=== PATIENT | female | born 1985 | race Caucasian/White ===

== ENCOUNTER 2019-01-23 12:12 | Emergency (ER) | payer OTHER, MEDICAID, SELFPAY ==
[2019-01-23 12:20] VITALS: BP 128/72; PULSE 84; RESP 18; TEMP 36.7; O2SAT 97; BMI 29.2
--- NOTE | 2019-01-23 12:46 | PC.NURSE ---
reports, picked up her son (30 pounds) yesterday, developed lumbar pain with left leg radiating pain (anterior and posterior pain all the way down to the lower leg) also with right anterior pain right leg. hurts to ambulate or moved. evaluated and rx given to pt from [facility]. spouse at .
--- NOTE | 2019-01-23 13:10 | ED_ITS ---
HPI - Back Pain/Injury <Avelina Monson PA-C - Last Filed: 01/23/19 19:21> General Chief Complaint: Back Pain/Injury Stated Complaint: hurt back yesterday while lifting child, numbness Time Seen by Provider: 01/23/19 12:35 Source: patient Mode of arrival: ambulatory Limitations: no limitations History of Present Illness HPI Narrative: This healthy 33-year-old lifted her 30 lb son yesterday and felt a pop in her low back. She felt pain across her low back, and since then has had shooting pain down her left leg to the ankle and to a lesser degree on the right leg. She states that she is able to walk but it is painful. She sometimes feels like her legs could give out a little bit but not dragging, no buckling or falls. She is not having any difficulty urinating, no bowel changes other than difficulty sitting on the toilet, no groin numbness. She was seen at another local emergency room yesterday and given Flexeril, prednisone, and [place] and has been in that with a little bit of improvement, able to sleep last night, but still very painful. She has an active job in a long commute and does not feel like she can sit in the car for a long period, concerned about whether oth er workup needed. She states that she had some herniated discs at L4/5/S1 at age 20 that did improved, still gets occasional pain but nothing like this. She denies any other ongoing medical problems or possibility of . Related Data Previous Rx's Medication Instructions Recorded gabapentin [Neurontin] 300 mg PO Q8H #30 cap 01/23/19 lidocaine [Lidoderm] 2 patch TOP DAILY #30 each 01/23/19 Allergies Allergy/AdvReac Type Severity Reaction Status Date / Time No Known Drug Allergies Allergy Verified 01/23/19 12:40 Review of Systems <Avelina Monson PA-C - Last Filed: 01/23/19 19:21> Review of Systems ROS Unobtainable: All systems reviewed & are unremarkable except as noted in HPI and below PFSH <Avelina Monson PA-C - Last Filed: 01/23/19 19:21> Medical History (Updated 01/23/19 @ 13:28 by Avelina Monson PA-C) Lumbar herniated disc (Chronic) Surgical History (Updated 01/23/19 @ 13:28 by Avelina Monson PA-C) Labral tear of shoulder (Resolved) Social History Smoking Status: Former smoker Social History Smoking Status: Former smoker Exam <Avelina Monson PA-C - Last Filed: 01/23/19 19:21> Narrative Exam Narrative: GENERAL APPEARANCE: Patient standing, appears stiff, uncomfortable, in NAD PULMONARY: Lungs clear to auscultation bilaterally CV: Regular rhythm regular without murmur, normal S1 and S2, no S3 or S4 MUSCULOSKELETAL: Mild tenderness throughout the lumbosacral spine and musculature as well as the SI joints. reduced trunk flexion to about 30? with tenderness. reduced rotation and lateral bend in all moya secondary to tenderness. she ambulates with a stiff, slightly shortened gait but bearing full weight, no foot drop. Lower extremity strength 5/5 bilateral hip flexors, knee extensors, foot plantar flexion. Negative modified straight leg raise NEUROLOGIC: Bilateral patellar and Achilles DTRs 2+ DERMATOLOGIC: No exanthem Initial Vital Signs Initial Vital Signs: Vital Signs Temperature 98.0 F 01/23/19 12:20 Pulse Rate 84 01/23/19 12:20 Respiratory Rate 18 01/23/19 12:20 Blood Pressure 128/72 01/23/19 12:20 Pulse Oximetry 97 01/23/19 12:20 <DO Jose Manuel Brizuela Last Filed: 01/24/19 07:03> Initial Vital Signs Initial Vital Signs: Vital Signs Temperature 98.0 F 01/23/19 12:20 Pulse Rate 84 01/23/19 12:20 Respiratory Rate 18 01/23/19 12:20 Blood Pressure 128/72 01/23/19 12:20 Pulse Oximetry 97 01/23/19 12:20 Course <Avelina Monson PA-C - Last Filed: 01/23/19 19:21> Vital Signs - 8 hr 01/23/19 12:20 Temperature 98.0 F Pulse Rate 84 Respiratory Rate 18 Blood Pressure 128/72 Pulse Oximetry 97 <DO Jose Manuel Brizuela Last Filed: 01/24/19 07:03> Vital Signs - 8 hr 01/23/19 12:20 Temperature 98.0 F Pulse Rate 84 Respiratory Rate 18 Blood Pressure 128/72 Pulse Oximetry 97 Discharge Plan Departure Patient Disposition: Home Clinical Impression: Sciatica Qualifiers: Laterality: bilateral Qualified Code(s): M54.31 - Sciatica, right side Discharge Date/Time: 01/23/19 13:36 Interventions: ED Discharge Assessment Last Done: 01/23/19 13:36 Instructions: DI for Back Pain With Sciatica Activity Restrictions/Additional Instructions: Please rest your back as we talked about, lying down or standing and gentle walking should be more comfortable for you than sitting for long periods, and also avoid bending, lifting, and twisting. Continue your prednisone. Takes the hydrocodone/acetaminophen and cyclobenzaprine as needed, but do not drive with these as they can make you sleepy. I have also sent in a prescription for gabapentin, which is a nerve pain medicine to your pharmacy for you to try. Remember that can make you sleepy as well. I have also sent in a prescription for lidocaine patches to put on the sore areas of your back. Typically this type of pain gets better with supportive care including medicine and therapy such as PT and massage. As we discussed, you should get to the ED right away if you have new symptoms such as numbness in your groin, inability to urinate, or weakness in your extremities. I have scheduled you for a new patient appointment with Dr. Hidalgo here in [facility] at the [facility] on , 01/25, check in at 11:00. Please complete and drop off your new patient paperwork on your way out. They can help you get referrals started for PT etc. Please remain off of work for now and you can assess your progress on Prescriptions: New lidocaine [Lidoderm] 5 % adhesive patch,medicated 2 patch TOP DAILY Qty: 30 RF: 0 gabapentin [Neurontin] 300 mg capsule 300 mg PO Q8H Qty: 30 RF: 0 Referrals: Jose Hidalgo MD [Physician] - Stand Alone Forms: Work Release Note <Kendall Salas DO - Last Filed: 01/24/19 07:03> Cosign ED Attending Cosfarzanaature Attestation: I was available for consultation during this patient's emergency department encounter
== END 2019-01-23 13:36 | disposition home or self-care (01) ==
PROVIDERS: Emergency Provider Internal Medicine
DX: M54.31 Sciatica, right side (principal); R20.0 Anesthesia of skin
CPT/HCPCS: 99282; 99283

== ENCOUNTER 2021-05-28 15:09 | Emergency (ER) | payer OTHER, SELFPAY ==
[2021-05-28 15:56] VITALS: BP 129/87; PULSE 88; RESP 16; TEMP 36.7; O2SAT 98; BMI 28.3
[2021-05-28 16:52] LABS: COVID19 -Nasal RAPID POSITIVE (Negative)
--- NOTE | 2021-05-28 17:07 | ED_ITS ---
HPI - URI/Sore Throat <Mario Peoples PA-C - Last Filed: 05/28/21 17:13> General Chief Complaint: Upper Respiratory Symptoms Stated Complaint: SOB,Headache,Cough,Tired Time Seen by Provider: 05/28/21 16:53 History of Present Illness HPI Narrative: Virgen presents today with chief complaint of runny nose, sore throat, mild cough and chest tightness that started about 1 week ago. She initially thought it was due to the sawdust at work and the heat. Her symptoms have improved but she would like to get tested for COVID. She reports that her partner has similar symptoms that started 2 days ago. Virgen is unvaccinated at this time but is scheduled to get her vaccine this next Tuesday. She denies any significant chest pain, difficulty breathing, fever but does endorse body aches and fatigue. She is tolerating oral intake normally. No significant past med ical problems. She does not take any prescription medications regularly. Related Data Previous Rx's Medication Instructions Recorded gabapentin 300 mg capsule 300 mg PO Q8H #30 cap 01/23/19 (Neurontin) lidocaine 5 % topical patch 2 patch TOP DAILY #30 each 01/23/19 (Lidoderm) Allergies Allergy/AdvReac Type Severity Reaction Status Date / Time No Known Drug Allergies Allergy Verified 01/23/19 12:40 Review of Systems <Mario Peoples PA-C - Last Filed: 05/28/21 17:13> Review of Systems Narrative: As per HPI Patient History <Mario Peoples PA-C - Last Filed: 05/28/21 17:13> Medical History (Updated 05/28/21 @ 17:11 by Mario Peoples PA-C) Lumbar herniated disc Surgical History (Updated 01/23/19 @ 13:28 by Avelina Monson PA-C) Labral tear of shoulder Social History Smoking Status: Former smoker Smoking Status: Former smoker alcohol intake frequency: 0-2 drinks per day Substance Use Type: does not use Exam <Mario Peoples PA-C - Last Filed: 05/28/21 17:13> Narrative Exam Narrative: Exam Narrative: Const General: cooperative, healthy appearing, comfortable, no acute distress, well developed and well groomed Nutritional Appearance: average body habitus Orientation: alert and oriented x3 HENMT Head: normal to inspection and atraumatic Ears: hearing grossly normal bilaterally Nose: external nose normal and nares normal Face and sinus: normal facial exam Neck Neck: normal visual inspection and supple Resp Effort & Inspection: normal respiratory effort, able to speak in complete sentences, no audible wheezes, not labored, no nasal flaring and no respiratory distress Neuro General: alert, oriented x3, gait normal, tone normal and moves all extremities Cognition: normal cognition Speech: speech normal Gait: normal gait Psych Appearance: grossly normal and well kempt Mental Status: mental status grossly normal Speech and Movement: speech and movement normal Mood: congruent mood Affect: normal affect Initial Vital Signs Initial Vital Signs: Vital Signs Temperature 98.0 F 05/28/21 15:56 Pulse Rate 88 05/28/21 15:56 Respiratory Rate 16 05/28/21 15:56 Blood Pressure 129/87 05/28/21 15:56 Pulse Oximetry 98 05/28/21 15:56 <DO Jose Manuel Brizuela Last Filed: 05/28/21 17:41> Initial Vital Signs Initial Vital Signs: Vital Signs Temperature 98.0 F 05/28/21 15:56 Pulse Rate 88 05/28/21 15:56 Respiratory Rate 16 05/28/21 15:56 Blood Pressure 129/87 05/28/21 15:56 Pulse Oximetry 98 05/28/21 15:56 Course <Mario Peoples PA-C - Last Filed: 05/28/21 17:13> Orders Ordered: ED Orders 05/28/21 16:00 COVID19 -Nasal swab/Pre-Proc Stat Vital Signs Vital signs: Vital Signs - 8 hr 05/28/21 15:56 Temperature 98.0 F Pulse Rate 88 Respiratory Rate 16 Blood Pressure 129/87 Pulse Oximetry 98 <DO Jose Manuel Brizuela Last Filed: 05/28/21 17:41> Orders Ordered: ED Orders 05/28/21 16:00 COVID19 -Nasal swab/Pre-Proc Stat Vital Signs Vital signs: Vital Signs - 8 hr 05/28/21 15:56 Temperature 98.0 F Pulse Rate 88 Respiratory Rate 16 Blood Pressure 129/87 Pulse Oximetry 98 MDM - URI/Sore Throat <REJI Perez Last Filed: 05/28/21 17:13> Lab Data Labs: Lab Results 05/28/21 Range/Units 16:00 SARS-CoV-2 (PCR) Positive H (Negative) MDM Narrative Medical decision making narrative: Patient is otherwise healthy, is oxygenating well and has reassuring vital signs. Her symptoms are improving at this time. I suspect that home isolation and a symptomatic therapy will be appropriate. Return precautions were discussed with the patient. Patient verbalizes understanding and agrees to plan and has no further concerns at this time. Thank you A [id number] system was used with the dictation of this note. Please disregard any spelling or grammatical errors. <Kendall Salas DO - Last Filed: 05/28/21 17:41> Lab Data Labs: Lab Results 05/28/21 Range/Units 16:00 SARS-CoV-2 (PCR) Positive H (Negative) Discharge Plan Departure Patient Disposition: Home Clinical Impression: COVID-19 Instructions: DI for COVID-19 (Suspected or Confirmed ) Activity Restrictions/Additional Instructions: It was very nice to meet you this afternoon. Please follow the CDC's guidelines for home isolation. Please assume that your and children all have the virus and quarantine at home per recommendations. Recommend monitoring oxygen saturation. If you experience consistent saturation levels below 92% and please return for prompt re-evaluation. Mother return precautions include chest pain, or any other new or worsening complaints. Thank you Mario Peoples PAC Prescriptions: No Action lidocaine [Lidoderm] 5 % adhesive patch,medicated 2 patch TOP DAILY Qty: 30 RF: 0 gabapentin [Neurontin] 300 mg capsule 300 mg PO Q8H Qty: 30 RF: 0 Referrals: Miscellaneous,DoctorMD [Primary Care Provider] - <Kendall Salas DO - Last Filed: 05/28/21 17:41> Cosign ED Attending Cosignature Attestation: Dr Salas Co-Sign Statement: I was available for consultation during this patient's emergency department visit. This chart is signed by myself for administrative purposes only. I did not have direct contact with this patient during this visit. They were seen independently by the APC.
== END 2021-05-28 17:17 | disposition home or self-care (01) ==
PROVIDERS: Emergency Medicine; Emergency Provider Physician Assistant
DX: U07.1 COVID-19 (principal); R05 Cough
CPT/HCPCS: 87635; 99281; 99282; C9803

== ENCOUNTER 2023-05-21 18:33 | Emergency (ER) | payer OTHER, SELFPAY ==
[2023-05-21 18:35] VITALS: BP 133/90; PULSE 55; RESP 14; O2SAT 100; BMI 29.7
--- NOTE | 2023-05-21 18:50 | ED.LOWEXIN ---
HPI - Extremity Injury (Lower) General Chief Complaint: Extremity Injury, Lower Stated Complaint: strained/pulled calf Time Seen by Provider: 05/21/23 18:37 Source: patient Mode of arrival: Ambulatory History of Present Illness HPI Narrative: 37-year-old female former smoker presents with a chief complaint of an injury to her right calf yesterday while playing baseball. She states that she had been in her normal state of health until she swung at a pitch and felt a tearing sensation in her posterior calf. She states that initially there was significant swelling and it felt like it had balled up some. It admittedly has improved since the time of her injury. She is able to walk and has no trouble with stepping off, she denies any pain radiating into her ankle or heel. Her pain is worse with motion and improves with rest. Related Data Previous Rx's Medication Instructions Recorded gabapentin 300 mg capsule 300 mg PO Q8H sciatica #30 caps 01/23/19 (Neurontin) lidocaine 5 % topical patch 2 patch topical DAILY #30 ea 01/23/19 (Lidoderm) Allergies Allergy/AdvReac Type Severity Reaction Status Date / Time No Known Drug Allergies Allergy Verified 05/21/23 18:37 Review of Systems Review of Systems Narrative: GENERAL: Denies chills, fatigue, malaise, fever, sweats. HEENT: Denies sinus pain, ear pain, sore throat, difficulty swallowing, dizziness. RESPIRATORY: Denies dyspnea, cough, wheezing, hemoptysis, sputum. CARDIOVASCULAR: Denies chest pain, palpitations, orthopnea, edema, GASTROINTESTINAL: Denies nausea, vomiting, abdominal pain, diarrhea, constipation, melena. : Denies dysuria, frequency, incontinence, hematuria, urinary retention. MUSCULOSKELETAL: See HPI SKIN: Denies rash, skin lesions, or other NEUROLOGIC: Denies weakness, headache, numbness, change in speech, confusion, seizures, incoordination. PSYCHIATRIC: No concerning psychosocial issues. 12 point review of systems is negative except for those stated above Patient History Medical History Lumbar herniated disc Surgical History Labral tear of shoulder Social History Smoking Status: Former smoker Smoking Status: Former smoker alcohol intake frequency: holidays/special occasions only Substance Use Type: does not use Exam Narrative Exam Narrative: GEN: AOx3 and in mild distress EYES: Pupils are equal, round, and reactive to light and accommodation. Extraoccular muscles are intact bilaterally. There is no subconjunctival hemorrhage or exudate. CHEST: Lungs are clear to auscultation bilaterally and free of wheezes, rales, or rhonchi. Heart rate is regular rhythm, there are no murmurs, clicks, rubs, or gallops. There is no chest wall tenderness. ABD: Abdomen is soft and nontender. There is no guarding or rebound. Bowel sounds are normal in all 4 quadrants. There is no mass or organomegaly. EXT: Full painless ROM of all extremities with no loss of sensation or strength. No obvious swelling, erythema or induration of posterior calf. Patient able to push off and dorsiflex both ankles. Calf squeeze results in plantar flexion of the right foot, palpable intact Achilles tendon noted. SKIN: Warm, pink, and dry. No erythema or rash Initial Vital Signs Initial Vital Signs: Vital Signs Pulse Rate 55 L 05/21/23 18:35 Respiratory Rate 14 05/21/23 18:35 Blood Pressure 133/90 05/21/23 18:35 Pulse Oximetry 100 05/21/23 18:35 Oxygen Delivery Method Room Air 05/21/23 18:35 Course Vital Signs Vital signs: Vital Signs - 8 hr 05/21/23 18:35 Pulse Rate 55 L Respiratory Rate 14 Blood Pressure 133/90 Pulse Oximetry 100 Oxygen Delivery Method Room Air MDM - Extremity Injury (Lower) MDM Narrative Medical decision making narrative: [37] year old patient presents with calf pain, admittedly better than it was yesterday Multiple etiologies for patient's symptoms considered including, but not limited to: [Gastrocs strain versus soleus injury versus Achilles injury versus other] Prior Charts reviewed in our EMR Primary Historian: patient Patient's symptoms improved over duration of stay with above-stated therapies. Findings and discharge diagnosis discussed with patient/family followed by verbalization of understanding Return precautions discussed with patient/family whom verbalize understanding of diagnosis and plan Discharge Plan Departure Patient Disposition: Home Clinical Impression: Strain of right calf muscle Instructions: DI for Calf Muscle Strain Activity Restrictions/Additional Instructions: *You have been diagnosed with [right calf strain. As we discussed the exam of your knees very reassuring as is that of your Achilles tendon which appears to be fully intact. As we discussed your symptoms would be expected to improve over the next 5-7 days at which point he will likely be able to return to work without restrictions *What to do: *Please continue to take your regular medications as directed. [ ] New medication prescriptions sent to your pharmacy: [ ] [ ] New medication written as a paper prescription [ ] No new medications given *Please follow up with your primary care provider in 2-3 days, call for an appointment. Let them know you were seen in the Emergency Department and that we ask that you be seen in follow up. We will electronically transmit a record of today's note if your PCP is in our system *If you do not have a primary care provider please contact the [facility] Resource line at [phone]. They will ask some questions about your medical history and help get you set up with a doctor in the community. *Return to Emergency Department if you should have any new, worsening or concerning symptoms, such as [fever greater than 101 F, shaking chills, worsening pain, persistent vomiting or other bothersome symptoms] Prescriptions: No Action lidocaine [Lidoderm] 5 % adhesive patch,medicated 2 patch TOP DAILY Qty: 30 0RF Rx Instructions: leave on most painful area for 12 hrs daily gabapentin [Neurontin] 300 mg capsule 300 mg PO Q8H Qty: 30 0RF Rx Instructions: 1 cap q8h for back/leg pain. Do not drive Referrals: Miscellaneous,DoctorMD [Primary Care Provider] - Stand Alone Forms: Patient Portal/API, Work Release Note
== END 2023-05-21 19:21 | disposition home or self-care (01) ==
PROVIDERS: Emergency Provider Emergency Medicine
DX: S86.911A Strain of unspecified muscle(s) and tendon(s) at lower leg level, right leg, initial encounter (principal); Y93.67 Activity, basketball
CPT/HCPCS: 99281